=== PATIENT | male | born 1975 | race Caucasian/White ===

== ENCOUNTER 2021-11-11 09:26 | Emergency (ER) | payer OTHER, SELFPAY ==
--- NOTE | ~2021-11-11 | XR_ITS ---
EXAMINATION: XR finger 2nd LT min 2V DATE: 11/11/2021 12:06 INDICATION: Left hand second digit laceration. TECHNIQUE: 4 views of left hand second digit were obtained. COMPARISON: None. FINDINGS: Bone alignment is normal. No fracture. 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 There is a laceration of the second digit. Bandage material decreases sensitivity. IMPRESSION: 1. No fracture or radiopaque foreign body. Reviewed, dictated and finalized at location B.
[2021-11-11 09:30] VITALS: BP 146/108; PULSE 86; RESP 18; TEMP 36.2; O2SAT 97
--- NOTE | 2021-11-11 11:10 | ED.WOUNDLAC ---
HPI - Wound/Laceration General Chief Complaint: Wound/Laceration Stated Complaint: finger laceration Time Seen by Provider: 11/11/21 11:06 Source: patient Mode of arrival: ambulatory Limitations: no limitations History of Present Illness HPI narrative: Patients is a 46 y/o male who presents to the ED with c/o a laceration to his L 2nd digit. Patient reports he was working with a circular saw cutting wood today when he cut himself on the distal palmar tip of his left second finger. He complains of pain to his left second digit. No other injuries. His tetanus is up-to-date. He has not taken anything for pain prior to arrival. No numbness tingling, weakness. Related Data Home Medications Medication Instructions Recorded Confirmed citalopram 40 mg PO DAILY 11/11/21 11/11/21 trazodone 100 mg PO DAILY 11/11/21 11/11/21 Allergies Allergy/AdvReac Type Severity Reaction Status Date / Time hydrocodone Allergy Mild Rash Verified 11/11/21 11:17 Review of Systems Review of Systems: CONSTITUTIONAL: Denies fever. GASTROINTESTINAL: Denies nausea, vomiting. SKIN: Reports laceration to L 2nd digit. MUSCULOSKELETAL: Denies joint pain. NEUROLOGIC: Denies numbness, tingling, or weakness. All systems reviewed & are unremarkable except as noted in HPI and below PMFSH Past Medical History Medical History (Updated 11/11/21 @ 13:21 by Marguerite Thompson PA-C) Depression Surgical History Surgical History (Updated 11/11/21 @ 12:25 by Marguerite Thompson PA-C) H/O umbilical hernia repair Social History Social History (Updated 11/11/21 @ 12:25 by Marguerite Thompson PA-C) Smokeless tobacco user: chewing tobacco Exam Narrative: GENERAL: Well appearing, well-nourished, non-toxic, in no acute distress. HEAD: Normocephalic, atraumatic. NECK: Supple. No adenopathy, no masses. RESPIRATORY: Airway patent, respirations nonlabored. CARDIOVASCULAR: Regular rate and rhythm without murmurs, rubs, or gallops. Radial pulses 2+ and equal bilaterally. MUSCULOSKELETAL: Moves all extremities. Strength/ROM/sensation intact. SKIN: Warm, dry. Jagged skin avulsion/laceration to near entirety of distal palmar tip of L 2nd digit with thin flap of skin overlying half of avulsion. NEURO: A&O X3. Speech clear. Cranial nerves II-XII grossly intact. Steady gait. No ataxic movements. PSYCHIATRIC: Appropriate mood and affect. Normal interaction. Course Vital Signs Vital signs: Vital Signs Temperature 97.2 F L 11/11/21 09:30 Pulse Rate 86 11/11/21 09:30 Respiratory Rate 18 11/11/21 09:30 Blood Pressure 146/108 H 11/11/21 09:30 Pulse Oximetry 97 11/11/21 09:30 Temperature 98.7 F 11/11/21 13:40 Pulse Rate 61 11/11/21 13:40 Respiratory Rate 18 11/11/21 13:40 Blood Pressure 142/92 H 11/11/21 13:40 Pulse Oximetry 100 11/11/21 13:40 Procedures Nerve Block Nerve Block 1: Nerve block date: 11/11/21 Nerve block time: 12:40 Time out performed: Yes Local Anesthetic: lidocaine 1% Amount of anesthesia used (mL): 5 Side: left Nerve Blocks: digital (2nd digit) Procedure Successful: Yes Patient Tolerated Procedure: well and no complications Complications: none MDM - Wound/Laceration MDM Narrative Medical decision making narrative: Patient presented to ED with laceration to left second digit sustained from a circular saw. Vital signs stable upon arrival. X-ray obtained which did not show any signs of fracture or FB. A digit nerve block was performed prior to repair. Patient sustained more of an avulsion than a laceration. Most of avulsion missing skin and edges unable to be approximated otherwise. Did attempt to suture flap of skin together, however, skin was very thin and was unable to be approximated and ultimately removed. The avulsion was then covered with Surgicel dressing with control of bleeding after Surgicel applied. The wound was bandaged. Patient UTD on tetanus.
[2021-11-11 11:14] VITALS: BP 138/98; PULSE 72; RESP 18; TEMP 36.4; O2SAT 97
--- NOTE | 2021-11-11 11:56 | PC.NURSE ---
pt off floor to radiology.
[2021-11-11] MEDS: KETOROLAC (*BKC) 60 MG/2 ML VIAL IM (12:35)
--- NOTE | 2021-11-11 12:44 | PC.NURSE ---
DAHLIA Everett at bedside suturing wound
[2021-11-11 13:40] VITALS: BP 142/92; PULSE 61; RESP 18; TEMP 37.1; O2SAT 100
== END 2021-11-11 13:40 | disposition home or self-care (01) ==
PROVIDERS: Emergency Provider Emergency Medicine; PCP Family Medicine
DX: S61.211A Laceration without foreign body of left index finger without damage to nail, initial encounter (principal); F32.A Depression, unspecified; F17.220 Nicotine dependence, chewing tobacco, uncomplicated; W31.2XXA Contact with powered woodworking and forming machines, initial encounter
CPT/HCPCS: 12001; 64450; 73140; 96372; 99283; J1885